=== PATIENT | female | born 1985 | race Two or more races ===

== ENCOUNTER 2023-10-25 06:53 | Inpatient (IN) | payer MEDICAID, OTHER ==
[~2023-10-25] VITALS: Ht 160 cm; Wt 76.2 kg
[2023-10-25] VITALS (16 sets, daily range): BP systolic 88–106; BP diastolic 50–66; PULSE 58–70; RESP 14–17; TEMP 97.7–98.5; O2SAT 96–100
[2023-10-25] MEDS ORDERED: LACTATED RINGER'S 1,000 ML IV ONE (07:45)
[2023-10-25 07:57] LABS: Fern Testing Positive
[2023-10-25 07:58] LABS: Urine Bacteria FEW /hpf (None Seen); Urine Blood Negative /uL (Negative); Urine Clarity Clear (Clear); Urine Color Light-Yellow (Yellow); Urine Protein, UAD Negative (Negative); Urine Specific Gravity 1.008 (1.001-1.035); Urine Urobilinogen Normal (Negative); Urine WBC 1 /hpf (0 - 5)
[2023-10-25 08:09] LABS: Amphetamine Screen, Urine Neg (NEGATIVE); Benzodiazephine Screen, Urine Neg (NEGATIVE)
[2023-10-25] MEDS ORDERED: MORPHINE SULF PF 5 MG/10 ML VIAL ONE (08:09)
[2023-10-25 08:10] LABS: Barbiturate Scree,Urine Neg (NEGATIVE); Cannabinoid Screen, Urine Neg (NEGATIVE); Cocaine Screen, Urine Neg (NEGATIVE); Opiate Scree,Urine Neg (NEGATIVE); Phencyclidine Screen, Urine Neg (NEGATIVE)
[2023-10-25] MEDS ORDERED: oxyTOCIN 10 UNIT/ML 10ML VIAL ONE (08:10)
[2023-10-25] MEDS: ceFAZolin 2 GM/D5W50ml 50 ML IV ONE (08:51)
[2023-10-25 08:53] LABS: Basophils # (auto) 0 10 ^3/uL (0-0.2); Basophils % (auto) 0.4 % (0.0-2.0); Eosinophils # (auto) 0.1 10 ^3/uL (0-0.8); Eosinophils % (auto) 1.6 % (0.0-7.0); Hematocrit 42.5 % (36.0-46.0); Hemoglobin 14.4 g/dL (12.2-16.2); Lymphocytes # (auto) 1.5 10 ^3/uL (0.4-5.4); Lymphocytes % (auto) 22.8 % (10.0-50.0); Mean Corpuscular Hemoglobin 30.7 pg (28.0-32.0); Mean Corpuscular Hgb Conc. 33.8 g/dL (32.0-36.0); Mean Corpuscular Volume 90.8 fL (80.0-100.0); Monocytes # (auto) 0.5 10 ^3/uL (0-1.3); Monocytes % (auto) 7.7 % (0.0-12.0); Neutrophils # (auto) 4.4 10 ^3/uL (1.6-8.6); Neutrophils % (auto) 67.5 % (37.0-80.0); Red Blood Cells 4.68 10^6/uL (4.0-5.20); Red Cell Distribution Width 13.8 % (11.8-14.3); White Blood Cell 6.5 10^3/uL (4.4-10.8)
[2023-10-25] MEDS ORDERED: ePHEDrine SULFATE 50 MG/ML AMP ONE (09:09)
[2023-10-25] MEDS ORDERED: ONDANSETRON HCL 4 MG/2 ML VIAL ONE (09:11)
[2023-10-25 09:23] LABS: Alanine Aminotransferase 37 U/L (7-40); Albumin 3.8 g/dL (3.2-4.8); Alkaline Phosphatase 118 U/L (46-116); Anion Gap 7 (5-15); Aspartate Aminotransferase 21 U/L (13-40); BUN/Creatinine Ratio 12.5 (10.0-20.0); Bilirubin, Total 0.8 mg/dL (0.2-1.0); Blood Urea Nitrogen 6 mg/dL (9-23); Carbon Dioxide 23 mmol/L (20-30); Chloride 109 mmol/L (98-107); Glucose 73 mg/dL (74-106); Potassium 3.7 mmol/L (3.5-5.1); Sodium 139 mmol/L (136-145)
[2023-10-25] MEDS ORDERED: MIDAZOLAM HCL 2MG/2ML 2ml VIAL (1mg/ml) ONE (09:32)
[2023-10-25] MEDS ORDERED: NALOXONE HCL 0.4 MG/ML VIAL IV PRN (10:15)
[2023-10-25] MEDS: ONDANSETRON HCL 4 MG/2 ML VIAL IV ONE (10:15)
[2023-10-25] MEDS: NALBUPHINE HCL 10 MG/1ml INJECTION SUBCUT ONE (10:15)
[2023-10-25] MEDS ORDERED: HYDROmorphone HCL 2 MG/ML VL/or syr IV PRN ×2 (10:15)
[2023-10-25] MEDS ORDERED: DexAMETHasone SOD PHOS 10MG/1ML VIAL INJ IV PRN (10:15)
[2023-10-25] MEDS ORDERED: MEPERIDINE HCL (25 MG/ML) 1ML VIAL IV PRN (10:15)
[2023-10-25] MEDS ORDERED: ONDANSETRON HCL 4 MG/2 ML VIAL IV PRN (10:15)
[2023-10-25 10:18] LABS: Calcium 9.1 mg/dL (8.7-10.4)
[2023-10-25] MEDS: LACTATED RINGER'S 1,000 ML IV SCH ×2 (10:46→15:37)
[2023-10-25] MEDS: KETOROLAC TROMETH 30 MG/ML 1ML VIAL IV PRN (10:46)
[2023-10-25] MEDS ORDERED: IBUP-1455 PO (10:49)
[2023-10-25] MEDS ORDERED: HYDR1TAB97 PO (10:49)
[2023-10-25] MEDS: diphenhdrAMINE HCL 50 MG/1 ML VL IV PRN (15:36)
[2023-10-25] MEDS: ACETAMINOPHEN IV 1000 MG/100ML (10MG/ML) IV PRN (15:37)
[2023-10-25] MEDS: ceFAZolin 1GM/50ML 50 ML IV SCH (16:56)
[2023-10-25 21:36] LABS: Basophils # (auto) 0 10 ^3/uL (0-0.2); Basophils % (auto) 0.2 % (0.0-2.0); Eosinophils # (auto) 0 10 ^3/uL (0-0.8); Eosinophils % (auto) 0.5 % (0.0-7.0); Hematocrit 38.4 % (36.0-46.0); Hemoglobin 13.1 g/dL (12.2-16.2); Lymphocytes # (auto) 1.5 10 ^3/uL (0.4-5.4); Lymphocytes % (auto) 17.7 % (10.0-50.0); Mean Corpuscular Hemoglobin 30.7 pg (28.0-32.0); Mean Corpuscular Volume 90.3 fL (80.0-100.0); Monocytes # (auto) 0.6 10 ^3/uL (0-1.3); Monocytes % (auto) 6.9 % (0.0-12.0); Neutrophils # (auto) 6.4 10 ^3/uL (1.6-8.6); Neutrophils % (auto) 74.7 % (37.0-80.0); Nucleated Red Blood Cells % 0.1 %; Red Blood Cells 4.26 10^6/uL (4.0-5.20); Red Cell Distribution Width 13.7 % (11.8-14.3); White Blood Cell 8.5 10^3/uL (4.4-10.8)
[2023-10-26] VITALS (13 sets, daily range): BP systolic 84–110; BP diastolic 44–66; PULSE 64–77; RESP 14–18; TEMP 98–98.6; O2SAT 95–100
[2023-10-26 06:06] LABS: RPR Non Reactive (Non Reactive)
[2023-10-26 06:44] LABS: Basophils # (auto) 0 10 ^3/uL (0-0.2); Basophils % (auto) 0.4 % (0.0-2.0); Eosinophils # (auto) 0.1 10 ^3/uL (0-0.8); Eosinophils % (auto) 1.1 % (0.0-7.0); Hematocrit 37.2 % (36.0-46.0); Hemoglobin 12.8 g/dL (12.2-16.2); Lymphocytes # (auto) 1.4 10 ^3/uL (0.4-5.4); Lymphocytes % (auto) 18.8 % (10.0-50.0); Mean Corpuscular Hemoglobin 31.1 pg (28.0-32.0); Mean Corpuscular Hgb Conc. 34.4 g/dL (32.0-36.0); Mean Corpuscular Volume 90.4 fL (80.0-100.0); Monocytes # (auto) 0.6 10 ^3/uL (0-1.3); Monocytes % (auto) 8.2 % (0.0-12.0); Neutrophils # (auto) 5.3 10 ^3/uL (1.6-8.6); Neutrophils % (auto) 71.5 % (37.0-80.0); Red Blood Cells 4.11 10^6/uL (4.0-5.20); Red Cell Distribution Width 14.1 % (11.8-14.3); White Blood Cell 7.4 10^3/uL (4.4-10.8)
[2023-10-26] MEDS: ceFAZolin 1GM/50ML 50 ML IV SCH (08:53)
[2023-10-26] MEDS ORDERED: BISACODYL 10 MG RECT SUPP PR PRN (09:00)
[2023-10-26] MEDS: DOCUSATE CALCIUM 240 MG CAP PO SCH (09:38)
[2023-10-26] MEDS: HYDROcodone-ACET 5/325MG TAB PO PRN ×2 (09:38→14:57)
[2023-10-26] MEDS: DOCUSATE SOD 100 MG CAP PO SCH (09:38)
[2023-10-26] MEDS: SIMETHICONE 80 MG CHEWABLE TABLET PO SCH (12:07)
[2023-10-26] MEDS: IBUPROFEN 800 MG TAB PO PRN (18:55)
[2023-10-27 03:07] VITALS: BP 100/54; PULSE 68; RESP 16; TEMP 98; O2SAT 97
[2023-10-27 07:00] VITALS: BP 93/78; PULSE 58; RESP 17; TEMP 98.2; O2SAT 98
[2023-10-27 11:05] VITALS: BP 102/63; PULSE 61; RESP 16; TEMP 98.6; O2SAT 98
[2023-10-29 19:06] LABS: Treponema pallidum Ab (FTA-Ab) Non Reactive (Non Reactive)
== END 2023-10-27 12:53 | disposition home or self-care (01) | DRG 539 ==
LOC: UNDOADMOB 06:53 → LDRP 06:53 → OBSVTOIN 08:10 → LDRP 10:30
PROVIDERS: ADMIT Obstetrics & Gynecology; ATTEND Obstetrics & Gynecology
PROC: 10D00Z1 Extraction of Products of Conception, Low, Open Approach (ICD-10-PCS; 2023-10-25)
PROC: 0UB70ZZ Excision of Bilateral Fallopian Tubes, Open Approach (ICD-10-PCS; principal; 2023-10-25 08:55)
DX: O42.92 Full-term premature rupture of membranes, unspecified as to length of time between rupture and onset of labor (principal); O34.211 Maternal care for low transverse scar from previous cesarean delivery; Z37.0 Single live birth; Z3A.37 37 weeks gestation of pregnancy; Z30.2 Encounter for sterilization
CPT/HCPCS: 36415; 59025; 80053; 80307; 81001; 81002; 84112; 85025; 86592; 86803; 86850; 86900; 86901; 94760; 94762; 96360; 96361; 96374; 96375; G0378; J0131; J1885; J2250; J2405; J2590